=== PATIENT | female | born 1945 | race Caucasian/White ===

== ENCOUNTER 2024-05-07 06:17 | Outpatient (CLI) | payer MEDICARE, BC, SELFPAY | END 2024-05-07 06:18 | disposition home or self-care (01) | LOC: AMB 05-08 09:47 | PROVIDERS: PCP Internal Medicine; Visit Provider Family Medicine | DX: R10.9 Unspecified abdominal pain (principal); R06.02 Shortness of breath | CPT/HCPCS: A0425; A0427 ==